=== PATIENT | female | born 1980 | race Caucasian/White ===

== ENCOUNTER 2018-05-20 08:42 | Outpatient (CLI) | payer MEDICAID ==
--- NOTE | 2018-05-20 11:08 | ULT ---
PELVIC ULTRASOUND INCLUDING TRANSABDOMINAL, TRANSVAGINAL, AND VASCULAR DUPLEX WITH COLOR AND SPECTRAL DOPPLER IMAGING: History: 37-year-old female with pelvic pain and heavy bleeding. FINDINGS: The uterus measures 8.6 cm in length and 5.7 x 4.2 cm transversely. Endometrium is somewhat thickened measuring 1.2 cm. Right ovary measures 5 x 2.6 x 3.2 cm which is mildly enlarged, without evidence f or significant cyst or mass. The left ovary has been removed. Vascular duplex demonstrates arterial inflow and venous outflow to the right ovary. No abscess or abn ormal fluid collection. Nabothian cyst. IMPRESSION: Removal of the left ovary. Upper range of normal sized right ovary. No ovarian mass or cyst. Unremark able uterus with a 1.2 cm thickened endometrium. POS: [facility]
== END 2018-05-20 08:43 | disposition home or self-care (01) ==
LOC: BICULT 08:42
PROVIDERS: ATTEND Family Medicine
DX: R10.2 Pelvic and perineal pain (principal); N93.9 Abnormal uterine and vaginal bleeding, unspecified; R93.89 Abnormal findings on diagnostic imaging of other specified body structures
CPT/HCPCS: 76856

== ENCOUNTER 2018-11-03 14:25 | Outpatient (CLI) | payer OTHER ==
[~2018-11-03 14:25] MED LIST: Iopamidol 370 76% 100 ML VIAL ONE
--- NOTE | 2018-11-03 16:22 | CT ---
CT ABDOMEN AND PELVIS WITH ORAL AND IV CONTRAST: 11/03/18 HISTORY: Chronic diarrhea; lower abdominal pain. COMPARISON: None. FINDINGS: There are mild dependent changes in the lung bases. No free air, free fluid or lymphadenopathy is see n in the abdomen or pelvis. Uterus and ovaries are present. There is a 2 cm cyst in the right adnexa likely ovarian. No calcified gallstones are seen. The liver, spleen, pancreas and adrenal glands are normal. There are mild degenerative changes in th e spine. IMPRESSION: 1. Nonobstructing bilateral renal calculi. 2. Renal cyst and scarring. 3. 2 cm right adnexal cyst likely ovarian. POS: [facility]
== END 2018-11-03 14:26 | disposition home or self-care (01) ==
LOC: BICCT 14:25
PROVIDERS: ATTEND Internal Medicine
DX: K52.9 Noninfective gastroenteritis and colitis, unspecified (principal); R10.30 Lower abdominal pain, unspecified; N20.0 Calculus of kidney; N28.1 Cyst of kidney, acquired; N83.8 Other noninflammatory disorders of ovary, fallopian tube and broad ligament
CPT/HCPCS: 74177

== ENCOUNTER 2019-01-13 12:01 | Emergency (ER) | payer OTHER, SELFPAY ==
[2019-01-13 14:37] LABS: Bilirubin Negative (Negative); Blood, Urine Negative (Negative); Clarity Clear (Clear); Glucose, Urine (Dipstick) Normal (Negative); Leukocyte Negative Leu/uL (Negative); Nitrite Negative (Negative); Protein, Urine (Dipstick) 20 mg/dL (Neg-Trace)
[2019-01-13 14:44] LABS: Pregnancy Test - Urine (BHCG) Negative (Negative); Pregu Control Background? CLEAR/WHITE (CLR/WHITE); Pregu Control Bar Appear? YES (CONTROL BAR); Specific Gravity 1.027 (1.002-1.036)
[2019-01-13] MEDS ORDERED: Fluconazole 100 MG TAB PO SCH (16:15)
[2019-01-14] MEDS ORDERED: Fluconazole 100 MG TAB PO SCH (09:00)
== END 2019-01-13 13:00 | disposition home or self-care (01) ==
LOC: ERS 12:01
DX: N89.8 Other specified noninflammatory disorders of vagina (principal); F41.9 Anxiety disorder, unspecified; F32.9 Major depressive disorder, single episode, unspecified; F17.210 Nicotine dependence, cigarettes, uncomplicated; Z79.899 Other long term (current) drug therapy
CPT/HCPCS: 81003; 81025; 87480; 87491; 87510; 87591; 87660; 99284

== ENCOUNTER 2019-03-12 15:49 | Emergency (ER) | payer SELFPAY ==
[2019-03-12] MEDS ORDERED: Morphine 4 MG/ML VIAL ONE (16:28)
[2019-03-12] MEDS ORDERED: Ondansetron PF 4 MG/2 ML Vial ONE ×2 (16:29→16:30)
[2019-03-12] MEDS ORDERED: Ketorolac Tromethamine 30 MG/ML VIAL ONE (16:29)
[2019-03-12] MEDS ORDERED: Piperacillin/Tazobactam 4.5 GM VIAL ONE (16:30)
[2019-03-12 16:36] LABS: #Basophils 0.1 thou/uL (0.0-0.2); #Eosinphils 0.2 thou/uL (0.0-0.7); #Lymphocytes 2.4 thou/uL (1.20-3.40); #Monocytes 0.6 thou/uL (0.11-0.59); %Basophils 0.6 % (0.0-1.0); %Lymphocytes 23.2 % (21.0-51.0); %Monocytes 5.9 % (0.0-10.0); %Neutrophils 68.3 % (42.0-75.0); Hemoglobin 14.1 g/dL (12.0-16.0); Mean Corpuscular Hemoglobin 30.9 pg (27.0-31.0); Mean Corpuscular Volume 93.8 fL (78.0-98.0); Mean Platelet Volume 10.5 fL (7.4-10.4); Platelet Count 245 thou/uL (130-400); RBC Distribution Width 11.9 % (11.5-14.5); Red Blood Cell (RBC) Count 4.57 mill/uL (4.20-5.40); White Blood Cell (WBC) Count 10.3 thou/uL (4.8-10.8)
[2019-03-12 16:41] LABS: BHCG - Serum Negative (NEGATIVE); Pregs Control Background? CLEAR/WHITE (CLR/WHITE); Pregs Control Bar Appear? YES (CONTROL BAR)
[2019-03-12 17:04] LABS: ALT (SGPT) 17 U/L (8-55); AST (SGOT) 21 U/L (5-34); Albumin 4.6 g/dL (3.5-5.0); Alkaline Phosphatase 58 U/L (40-150); Anion Gap 16 mmol/L (10-20); BUN (Urea Nitrogen) 9 mg/dL (7.0-18.7); Bilirubin, Total 0.5 mg/dL (0.2-1.2); Calc. Creatinine Clearance 0 mL/min (70-130); Calcium 9.6 mg/dL (7.8-10.44); Carbon Dioxide 20 mmol/L (22-29); Chloride 109 mmol/L (98-107); Estimated GFR-MDRD 90; Globulin 2.7 g/dL (2.4-3.5); Glucose 88 mg/dL (70-105); Potassium 4.2 mmol/L (3.5-5.1); Protein, Total 7.3 g/dL (6.0-8.3); Sodium 141 mmol/L (136-145)
[2019-03-12 17:20] LABS: Bilirubin Negative (Negative); Blood, Urine 3+ (Negative); Clarity Clear (Clear); Glucose, Urine (Dipstick) Normal (Negative); Leukocyte Negative Leu/uL (Negative); Nitrite Negative (Negative); Protein, Urine (Dipstick) 30 mg/dL (Neg-Trace); RBC/HPF Greater than 50 HPF (0-3); Urobilinogen Normal mg/dL (Less than 2)
[2019-03-12 17:44] LABS: Bacteria/HPF 1+ HPF (None Seen)
--- NOTE | 2019-03-12 19:28 | CT ---
CT ABDOMEN AND PELVIS WITHOUT CONTRAST: 03/12/19 HISTORY: Right sided abdominal pain. FINDINGS: Comparison is made with contrasted exam of 11/03/18. Absence of oral and IV contrast reduces the sensitivity of the exam, particularly for evaluation of s olid organs or bowel. The lung bases are clear. No calcified gallstones are seen. No free air or free fluid is seen in the abdomen or pelvis. The uterus and ovaries are present. Bilateral renal calculi are present. There is scarring in the right kidney. The cyst in the right kid taty is better visualized on the previous study. Prominence of right extrarenal pelvis is again seen. There is a 4 mm focal high density in the region of the right UPJ. No calculi is seen in the left ure ter or the urinary bladder. No left sided hydroureteronephrosis seen. IMPRESSION: 1. Probable 4 mm calculus at the right UPJ. 2. Bilateral renal calculi. 3. Right renal scarring and right renal cyst. POS: [facility]
== END 2019-03-12 19:25 | disposition home or self-care (01) ==
LOC: ERS 15:49
DX: N20.1 Calculus of ureter (principal); F41.9 Anxiety disorder, unspecified; F32.9 Major depressive disorder, single episode, unspecified; F42.9 Obsessive-compulsive disorder, unspecified; F17.210 Nicotine dependence, cigarettes, uncomplicated; Z79.899 Other long term (current) drug therapy
CPT/HCPCS: 36415; 74176; 80053; 81003; 81015; 84703; 85025; 87086; 96361; 96374; 96375; J1885; J2270; J2405; J2543

== ENCOUNTER 2019-08-15 16:07 | Emergency (ER) | payer SELFPAY ==
[2019-08-15 17:12] LABS: Bacteria/HPF None Seen HPF (None Seen); Bilirubin Negative (Negative); Blood, Urine Trace (Negative); Clarity Clear (Clear); Glucose, Urine (Dipstick) Normal (Negative); Leukocyte Negative Leu/uL (Negative); Nitrite Negative (Negative); Protein, Urine (Dipstick) Negative (Neg-Trace); RBC/HPF 0-3 HPF (0-3); Squamous Epithelial 0-3 HPF (0-3); Urobilinogen Normal mg/dL (Less than 2); WBC/HPF 0-3 HPF (0-3)
[2019-08-15 17:17] LABS: Pregnancy Test - Urine (BHCG) Negative (Negative); Pregu Control Background? CLEAR/WHITE (CLR/WHITE); Pregu Control Bar Appear? YES (CONTROL BAR); Specific Gravity 1.024 (1.002-1.036)
[2019-08-15] MEDS ORDERED: Dexamethasone 10 MG/ML VIAL ONE (17:48)
[2019-08-15] MEDS ORDERED: Ondansetron ODT 4 MG TAB ONE ×2 (17:48→17:52)
== END 2019-08-15 18:00 | disposition home or self-care (01) ==
LOC: ERS 16:07
DX: J11.1 Influenza due to unidentified influenza virus with other respiratory manifestations (principal); R11.0 Nausea; F41.9 Anxiety disorder, unspecified; F32.9 Major depressive disorder, single episode, unspecified; F17.210 Nicotine dependence, cigarettes, uncomplicated
CPT/HCPCS: 81003; 81015; 81025; 87804; 99283; J1100; Q0162

== ENCOUNTER 2019-09-24 18:41 | Emergency (ER) | payer SELFPAY | END 2019-09-24 20:37 | disposition home or self-care (01) | LOC: ERS 18:41 | DX: B34.9 Viral infection, unspecified (principal); F41.9 Anxiety disorder, unspecified; F32.9 Major depressive disorder, single episode, unspecified; F17.210 Nicotine dependence, cigarettes, uncomplicated | CPT/HCPCS: 87804; 99283 ==

== ENCOUNTER 2020-08-05 13:33 | Emergency (ER) | payer SELFPAY ==
[2020-08-05] MEDS ORDERED: Ibuprofen 800 MG TAB ONE (15:26)
[2020-08-05] MEDS ORDERED: Acetaminophen 500 MG TAB ONE (15:26)
[2020-08-06 03:00] LABS: SARS-CoV-2 PCR by NAA Not Detected (NotDetected)
== END 2020-08-05 15:50 | disposition home or self-care (01) ==
LOC: ERS 13:33
DX: B34.9 Viral infection, unspecified (principal); F17.210 Nicotine dependence, cigarettes, uncomplicated; Z20.822 Contact with and (suspected) exposure to COVID-19
CPT/HCPCS: 87635; 99283; U0003; U0005

== ENCOUNTER 2025-04-07 20:23 | Emergency (ER) | payer SELFPAY ==
[2025-04-07] MEDS ORDERED: Ketorolac Tromethamine 30 MG (1 mL) VIAL ONE (22:06)
[2025-04-07] MEDS ORDERED: Boostrix 0.5 ML (Tdap) VIAL (>/=7 yrs of age) ONE (22:07)
[2025-04-07] MEDS ORDERED: Acetaminophen 500 MG TAB ONE (22:22)
== END 2025-04-07 22:35 | disposition home or self-care (01) ==
LOC: ERS 20:23
DX: S61.212A Laceration without foreign body of right middle finger without damage to nail, initial encounter (principal); K08.89 Other specified disorders of teeth and supporting structures; K02.9 Dental caries, unspecified; Z23 Encounter for immunization; W26.0XXA Contact with knife, initial encounter
CPT/HCPCS: 90471; 90715; J1885